=== PATIENT | female | born 1985 ===

== ENCOUNTER 2018-06-12 16:31 | Emergency (ER) | payer OTHER ==
[2018-06-12] MEDS ORDERED: Lactated Ringer's 1,000 ML IV STA (18:46)
[2018-06-12 19:06] LABS: BASO # 0.1 K/uL (0.0-0.2); BASO % 0.8 % (0.0-2.0); EOS # 0.3 K/uL (0.0-0.7); HEMOGLOBIN 13.5 g/dL (12.0-16.0); LYMPH # 2.5 K/uL (1.0-4.3); MEAN CELL VOLUME 83.9 fl (81.0-99.0); MEAN CORPUSCULAR HEMOGLOBIN 27.5 pg (27.0-31.0); MEAN CORPUSCULAR HGB CONC 32.8 g/dL (33.0-37.0); MEAN PLATELET VOLUME 8.2 fl (7.2-11.7); MONO # 0.8 K/uL (0.0-0.8); MONO % 9.3 % (0.0-10.0); NEUT # 5.2 K/uL (1.8-7.0); NEUT % 58.9 % (50.0-75.0); NRBC % 0.1 % (0.0-0.0); RBC 4.91 Mil/uL (3.80-5.20); RED CELL DISTRIBUTION WIDTH 13.3 % (11.5-14.5); WHITE BLOOD COUNT 8.9 K/uL (4.8-10.8)
--- NOTE | 2018-06-12 19:07 | ED PDOC ---
HPI: Female Pain Time Seen by Provider: 06/12/18 18:05 Chief Complaint (Nursing): Abdominal Pain Chief Complaint (Provider): Pelvic Pain History Per: Patient History/Exam Limitations: no limitations Onset/Duration Of Symptoms: Days (x 2 weeks) Current Symptoms Are (Timing): Still Present Quality Of Discomfort: "Pain" Associated Symptoms: Vomiting, Urinary Symptoms Additional Complaint(s): 32 year old female presents to the ED with pelvic pain associated with mild dysuria and frequency for 2 weeks. Since onset, pain is worsening and she has experienced intermittent nbnb vomiting. LMP April 21. She has not yet started care. Denies vaginal bleeding and discharge. PMD: Dr. White Abnormal Vaginal Bleeding: No Last Menstral Period: 04/21/2018 : 1 Past Medical History Reviewed: Historical Data, Nursing Documentation, Vital Signs Vital Signs: Last Vital Signs Temp 98.4 F 06/12/18 17:36 Pulse 74 06/12/18 17:36 Resp 18 06/12/18 17:36 BP 137/75 06/12/18 17:36 Pulse Ox 100 06/12/18 17:36 - Medical History PMH: No Chronic Diseases - Surgical History Surgical History: No Surg Hx - Family History Family History: States: Unknown Family Hx - Home Medications Home Medications: Ambulatory Orders Medication Instructions Recorded 21/Iron Fu/Folic Acid 1 each PO DAILY #1 packet 06/12/18 [ Complete Caplet] - Allergies Allergies/Adverse Reactions: Allergies Allergy/AdvReac Type Severity Reaction Status Date / Time No Known Allergies Allergy Verified 06/12/18 17:42 Review of Systems ROS Statement: Except As Marked, All Systems Reviewed And Found Negative Genitourinary Female: Positive for: Dysuria, Frequency, Pelvic Pain. Negative for: Vaginal Discharge, Vaginal Bleeding Physical Exam - Reviewed Nursing Documentation Reviewed: Yes Vital Signs Reviewed: Yes - Physical Exam Appears: Positive for: No Acute Distress Head Exam: Positive for: ATRAUMATIC, NORMAL INSPECTION, NORMOCEPHALIC Skin: Positive for: Warm, Dry Gastrointestinal/Abdominal: Positive for: Tenderness (lower left pelvic tenderness to palpation). Negative for: Mass, Guarding, Rebound, Other (Ulloa's sign and McBurney's point tenderness) Back: Positive for: Normal Inspection. Negative for: L CVA Tenderness, R CVA Tenderness - Laboratory Results Result Diagrams: 06/12/18 19:00 - ECG O2 Sat by Pulse Oximetry: 100 (RA) Pulse Ox Interpretation: Normal Medical Decision Making Medical Decision Makin:07 Impression: 1st trimester and pelvic pain Differential dxs include but are not limited to: round ligament pain, ovarian cyst, ectopic and UTI Initial Plan: --Urine preg --Urine dip --Urine cx --UA --lactated Ringers IV 1,000 mls --CBC --Beta HCG --Glucose POC --Transvag US 21:25 US Findings Uterus Single intrauterine gestational sac. pole is not visualized. Heart motion is not identified. Gestational sac diameter equivalent to 5 wks/1 day gestation Cassy-gestational hemorrhage: None. Uterus measures 7.56 x 7.81 x 5.06 cm. Endometrium thickness measures 2.51 cm. No mass. Possible arcuate uterus. Cervix Long and closed. No cervical abnormality seen measuring 4.4 cm. Right Ovary Measures 2.55 x 1.44 x 1.57 cm with volume of 3.01 cc. No mass. Normal flow. Left Ovary Measures 3.31 x 2.66 x 1.99 cm with volume of 9.19 cc. No mass. Normal flow. Corpus luteal cyst measures 2.31 x 2.08 x 1.95 cm. Free Fluid None. Other Findings None. Impression 1. Single intrauterine gestational sac with no pole or heart motion detected. 2. Left ovarian corpus luteal cyst. 3. Possible arcuate uterus. DW pt findings and plan of care. Specifically informed that no fetus is seen in ultrasound but should be given betahcg. Need for repeat betahcg in 48 hours and repeat US in a week, in [facility] or back in ER if necessary. Reasons to rter provided: severe pain, fainting or near fainting, bleeding, or any other worrisome symptoms. Scribe Attestation: Documented by Ally Menezes acting as a scribe for Eliana Canales MD Provider Scribe Attestation: All medical record entries made by the Scribe were at my direction and personally dictated by me. I have reviewed the chart and agree that the record accurately reflects my personal performance of the history, physical exam, medical decision making, and the department course for this patient. I have also personally directed, reviewed, and agree with the discharge instructions and disposition. Disposition - Clinical Impression Clinical Impression: Abdominal pain during Counseled Patient/Family Regarding: Studies Performed, Diagnosis, Need For Foll owup - Disposition [facility]errals[facility]Outside[facility] (FOLLOW UP AT CLINIC TO START CARE.) Disposition: Routine/Home Disposition Time: 22:00 Condition: STABLE Additional Instructions: NECESITA VISITA A [facility] EN 2 BABIN A CHEQAR DE NUEVO. NECESITA REPITAR DEVLIN ANALISIS DE TAB[place]HA. SI USTED NO PUEDA HACER [place] [facility] EN 2 BABIN, REGRESA ACQUI A CHEQAR DE NUEVO. REGRESA A LA ONEIL DE EMERGENCIA INMEDIATO POR MUCHO DOLOR, ESTA [place], O OTRAS MALAS SINTOMAS. Prescriptions: 21/Iron Fu/Folic Acid [ Complete Caplet] 1 each PO DAILY #1 packet Instructions: Stomach Pain in Early Print Language: PORTUGUESE
[2018-06-12 19:18] LABS: SQUAMOUS EPITHIAL 3 /hpf (0-5); URINE BACTERIA RARE (<OCC); URINE BILIRUBIN NEGATIVE (NEGATIVE); URINE BLOOD NEGATIVE (NEGATIVE); URINE CLARITY CLEAR (Clear); URINE COLOR YELLOW (YELLOW); URINE GLUCOSE (UA) 50 mg/dL (NEGATIVE); URINE LEUKOCYTE ESTERASE TRACE Leu/uL (Negative); URINE PROTEIN NEGATIVE (NEGATIVE); URINE UROBILINOGEN 0.2-1.0 mg/dL (0.2-1.0)
[2018-06-12 22:01] VITALS: BP 127/78; PULSE 78; RESP 15; TEMP 98.5
--- NOTE | 2018-06-13 11:34 | US ---
Date of service: 06/12/2018 PROCEDURE: OB Pelvic Ultrasound HISTORY: LEFT sided pelvic pain 7 wks r/o ectopic COMPARISON: None available. FINDINGS: UTERUS: Single intrauterine gestation. Gestational sac diameter measures 1.12 cm corresponding to 5 weeks and 1 day of gestational age with Yolk sac is visualized. pole is not identified on the current examination. age (Ultrasound estimated): 5 weeks and 1 day Date of delivery (Ultrasound estimated) : 18 19 Cassy-gestational hemorrhage: None. Uterus measures 7.5 x 7.8 x 5.0 cm. No mass CERVIX: Long and closed. No cervical abnormality seen. RIGHT OVARY: Measures 2.5 x 1.4 x 1.5 cm. No mass. Normal flow. LEFT OVARY: Measures 3.3 x 2.6 x 1.9 cm. No mass. Normal flow. There is a 2.3 x 2.0 x 1.9 cm corpus luteum cyst. FREE FLUID: None. OTHER FINDINGS: None. IMPRESSION: Single intrauterine gestation with mean gestational age of 5 weeks and 1 day. The estimated date of delivery by ultrasound is 02/11/2019. Clinical and ultrasound follow-up is recommended to confirm viability. A preliminary report was provided by [employer].
[2018-06-13 14:06] VITALS: O2SAT 100
== END 2018-06-12 22:01 | disposition home or self-care (01) ==
LOC: H.ER 16:31
DX: O26.91 Pregnancy related conditions, unspecified, first trimester (principal); R10.2 Pelvic and perineal pain
CPT/HCPCS: 76817; 81003; 81025; 82948; 84702; 85025; 87086; 99284; J7120